=== PATIENT | male | born 1950 | race Caucasian/White ===

== ENCOUNTER 2018-09-10 09:45 | Day surgery (SDC) | payer MEDICARE, OTHER ==
[~2018-09-10] VITALS: Ht 185.4 cm; Wt 111.2 kg
[~2018-09-10 09:45] MED LIST: ANDROGEL; ASPI81EC PO; CHONDROITIN; CODACE30; CODACE30 PO; CYCL10 PO; DIAZ5 PO; DOCU100; DOCU100 PO; DOXA2; DOXA4 PO; Depo-Testos200 MG/ML IM; ENOX100I SC; ERGO400 PO; FISH1000 PO; FLAX PO; FLUT.05NI; GLUC500 PO; GLUCHON PO; HYDMOR4 PO; KETOPROFEN; LANS30EC PO; LEVA.63IS INH; LORA.5 PO; LOVA40; LOVA40 PO; MOMENI; MORP15ER PO; MSM PO; MULVITA; MULVITA PO; MULVITB&C PO; MULVITMIND PO; Morphine Sulfat15 MG PO; OXAP600; OXYACE5T PO; PYRI100 PO; Percocet 5-3251 EACH PO; Prednisone20 MG PO; TADA10TA PO; TRIA80TC; TRIA80TC TOP; VITB100 PO; Valium5 MG PO; WARF2 PO; WARF5; WARF5 PO; WARF6
[2018-09-10] MEDS ORDERED: WARF1 PO (10:22)
[2018-09-10] MEDS ORDERED: WARF4 PO (10:22)
== END 2018-09-10 11:42 | disposition home or self-care (01) ==
LOC: ORSCSDS 09:45
PROVIDERS: Internal Medicine Gastroenterology
PROC: 0DB68ZX Excision of Stomach, Via Natural or Artificial Opening Endoscopic, Diagnostic (ICD-10-PCS; principal; 2018-09-10 11:00)
PROC: 0DB58ZX Excision of Esophagus, Via Natural or Artificial Opening Endoscopic, Diagnostic (ICD-10-PCS; principal; 2018-09-10 11:00)
DX: K22.70 Barrett's esophagus without dysplasia (principal); K31.7 Polyp of stomach and duodenum; K21.9 Gastro-esophageal reflux disease without esophagitis; I10 Essential (primary) hypertension; E78.5 Hyperlipidemia, unspecified; Z87.891 Personal history of nicotine dependence; Z86.718 Personal history of other venous thrombosis and embolism; Z86.711 Personal history of pulmonary embolism; Z79.01 Long term (current) use of anticoagulants; J45.909 Unspecified asthma, uncomplicated; Z86.73 Personal history of transient ischemic attack (TIA), and cerebral infarction without residual deficits; Z79.899 Other long term (current) drug therapy
CPT/HCPCS: 88305; J2704; J7120

== ENCOUNTER → 2018-11-23 | Outpatient (CLI) | payer MEDICARE, OTHER ==
[~2018-11-23] MED LIST changes: +ACET325 PO; +FINA5 PO; +FISH OIL 1,2001 EACH PO; +LOSARTAN POTAS100 MG PO; +TAMS.4ER PO; +WARF1 PO; +WARF4 PO
[2018-11-23 16:30] LABS: Source, Urine Clean Catch
[2018-11-23 17:58] LABS: Bilirubin, Urine Neg (Neg); Blood, Urine Neg (Neg); Glucose Qualitative, Urine Neg (Neg); Ketones, Urine 1+ (Neg); Leukocyte Esterase, Urine 1+ (Neg); Nitrite, Urine Neg (Neg); Protein, Urine Neg (Neg); Urobilinogen, Urine NORM (Normal)
[2018-11-23 18:07] LABS: Appearance, Urine Clear (Clear); Color, Urine Yellow (P-Yellow)
[2018-11-23 18:09] LABS: Bacteria Few /hpf; Red Blood Cells, Urine Not Seen /hpf (0-2); Squamous Epithelial Cells Rare /hpf (Few); White Blood Cells, Urine 0-2 /hpf (0-5)
== END | disposition home or self-care (01) ==
LOC: LAB 16:28 → LAB SHORT 16:28
PROVIDERS: Physician Assistant
DX: R10.2 Pelvic and perineal pain (principal)
CPT/HCPCS: 81001; 87086

== ENCOUNTER 2018-12-17 10:05 | Emergency (ER) | payer MEDICARE, OTHER ==
[~2018-12-17] VITALS: Ht 185.4 cm; Wt 112.4 kg
[~2018-12-17 10:05] MED LIST changes: -ACET325 PO; -FINA5 PO; -LOSARTAN POTAS100 MG PO; -TAMS.4ER PO
[2018-12-17] MEDS ORDERED: FINA5 PO (11:20)
[2018-12-17] MEDS ORDERED: LANS30EC PO (11:21)
[2018-12-17] MEDS ORDERED: LOSARTAN POTAS100 MG PO (11:27)
[2018-12-17] MEDS ORDERED: TAMS.4ER PO (11:56)
[2018-12-17] MEDS ORDERED: Depo-Testos200 MG/ML IM (11:59)
[2018-12-17] MEDS ORDERED: ACET325 PO (12:00)
== END 2018-12-17 15:46 | disposition home or self-care (01) ==
LOC: ER 10:05
DX: S40.022A Contusion of left upper arm, initial encounter (principal); S80.02XA Contusion of left knee, initial encounter; R51 Headache; I10 Essential (primary) hypertension; Z88.0 Allergy status to penicillin; Z88.2 Allergy status to sulfonamides; Z87.891 Personal history of nicotine dependence; Z79.899 Other long term (current) drug therapy; W18.30XA Fall on same level, unspecified, initial encounter
CPT/HCPCS: 70450; 72040; 73030; 73070; 73564; 99284-25

== ENCOUNTER → 2020-05-17 | Outpatient (CLI) | payer MEDICARE, OTHER ==
[~2020-05-17] MED LIST changes: +ACET325 PO; +FINA5 PO; +LOSARTAN POTAS100 MG PO; +TAMS.4ER PO
== END | disposition home or self-care (01) ==
LOC: LAB 11:06 → LAB SHORT 11:06
DX: D04.61 Carcinoma in situ of skin of right upper limb, including shoulder (principal)
CPT/HCPCS: 88305

== ENCOUNTER → 2020-11-07 | Outpatient (CLI) | payer MEDICARE, OTHER | END | disposition home or self-care (01) | LOC: LAB SHORT 08:02 | DX: L90.5 Scar conditions and fibrosis of skin (principal) | CPT/HCPCS: 88305 ==

== ENCOUNTER → 2021-05-31 | Outpatient (CLI) | payer MEDICARE, OTHER ==
[2021-06-10 06:11] LABS: 6-ACETYLMORPHINE Not Detected (.)
== END | disposition home or self-care (01) ==
LOC: LAB SHORT 16:57
PROVIDERS: Family Medicine
DX: Z51.81 Encounter for therapeutic drug level monitoring (principal); Z79.899 Other long term (current) drug therapy
CPT/HCPCS: G0480

== ENCOUNTER → 2021-09-02 | Outpatient (CLI) | payer MEDICARE, OTHER ==
[2021-09-11 08:17] LABS: 6-ACETYLMORPHINE Not Detected (.)
== END | disposition home or self-care (01) ==
LOC: LAB SHORT 10:50 → LAB 10:50
PROVIDERS: Family Medicine
DX: Z51.81 Encounter for therapeutic drug level monitoring (principal); Z79.899 Other long term (current) drug therapy
CPT/HCPCS: G0480

== ENCOUNTER 2021-11-13 08:53 | Day surgery (SDC) | payer MEDICARE, OTHER ==
[~2021-11-13] VITALS: Ht 185.4 cm; Wt 109.0 kg
[2021-11-13] MEDS ORDERED: ENOX30I (09:20)
== END 2021-11-13 10:44 | disposition home or self-care (01) ==
LOC: ORSCSDS 08:53
PROVIDERS: Internal Medicine Gastroenterology
PROC: 0DB58ZX Excision of Esophagus, Via Natural or Artificial Opening Endoscopic, Diagnostic (ICD-10-PCS; principal; 2021-11-13 10:00)
DX: K22.70 Barrett's esophagus without dysplasia (principal); J45.909 Unspecified asthma, uncomplicated; I63.9 Cerebral infarction, unspecified; K21.9 Gastro-esophageal reflux disease without esophagitis; Z86.73 Personal history of transient ischemic attack (TIA), and cerebral infarction without residual deficits; Z79.01 Long term (current) use of anticoagulants; Z79.899 Other long term (current) drug therapy
CPT/HCPCS: 88305; J2704; J7120

== ENCOUNTER → 2022-08-26 | Outpatient (CLI) | payer MEDICARE, OTHER ==
[~2022-08-26] MED LIST changes: +ENOX30I
== END | disposition home or self-care (01) ==
LOC: LAB SHORT 14:01 → PLD 14:01
DX: D69.2 Other nonthrombocytopenic purpura (principal)
CPT/HCPCS: 88305; 88313

== ENCOUNTER 2022-12-02 16:33 | Inpatient (IN) | payer MEDICARE, OTHER ==
[~2022-12-02] VITALS: Ht 185.4 cm; Wt 110.9 kg
[~2022-12-02 16:33] MED LIST changes: +DEPO-TESTO200 MG/1 M IM; -WARF1 PO
[2022-12-02 17:06] LABS: BASOPHILS ABSOLUTE AUTO 0.04 K/mm3 (0.00-0.23); BASOPHILS PERCENT AUTO 1 % (0-2); EOSINOPHILS ABSOLUTE AUTO 0.15 K/mm3 (0.00-0.68); EOSINOPHILS PERCENT AUTO 2 % (0-6); Hematocrit 38.8 % (37.0-53.0); Hemoglobin 13.1 g/dL (13.5-17.5); IMMATURE GRAN ABSOLUTE AUTO 0.01 K/mm3 (0.00-0.10); IMMATURE GRAN PERCENT AUTO 0 % (0-1); LYMPHOCYTES ABSOLUTE AUTO 1.42 K/mm3 (0.84-5.20); LYMPHOCYTES PERCENT AUTO 23 % (21-46); MONOCYTES ABSOLUTE AUTO 0.48 K/mm3 (0.16-1.47); MONOCYTES PERCENT AUTO 8 % (4-13); Mean Corpuscular HGB 32.3 pg (26.0-34.0); Mean Corpuscular HGB Conc 33.8 g/dL (31.5-36.5); Mean Corpuscular Volume 96 fL (80-100); Mean Platelet Volume 9.8 fL (9.1-12.4); NEUTROPHILS ABSOLUTE AUTO 4.11 K/mm3 (1.96-9.15); NEUTROPHILS PERCENT AUTO 66 % (41-73); Platelet Count 199 K/mm3 (150-400); RDW Coefficient Variation 12.8 % (11.7-14.2); RDW Standard Deviation 44.8 fL (35.1-46.3); Red Blood Cell Count 4.06 M/mm3 (4.30-5.90); White Blood Cell Count 6.21 K/mm3 (4.00-11.30)
[2022-12-02 17:14] LABS: Albumin, Blood 3.4 g/dL (3.4-5.0); Bilirubin, Total 0.4 mg/dL (0.1-1.0); Bun/Creatinine Ratio 24.9 (12.0-20.0); Calcium, Blood 8.4 mg/dL (8.5-10.1); Creatinine, Blood 0.72 mg/dL (0.60-1.20); Globulin, Blood 3.3 g/dL (2.2-4.0); Potassium, Blood 4.1 mmol/L (3.5-5.5); Total Protein, Blood 6.7 g/dL (6.4-8.2)
--- NOTE | 2022-12-02 20:05 | NUR ---
PT CHART REVIEWED FOR ADMISSION
[2022-12-02 20:54] VITALS: BP 136/76
--- NOTE | 2022-12-02 22:18 | NUR ---
ADMIT NOTE 72 YR OLD MALE ADMITTED TO FLOOR FROM THE ED WITH DX OF CHEST PAIN. ALERT AND ORIENTED X 4. DENIES CHEST PAIN AT THIS TIME. VOICED HX OF "SMALL" CVA A FEW YEARS AGO. NOTE SLIGHT RIGHT FACIAL DROOP, AND PT VOICED SOME NEUROPATHY OF BLE. OTHERWISE, NO NOTED S/S. PT UP AD RAEANN. ORIENTED TO USE OF CALL LIGHT. VSS. WILL CONTINUJE TO MONITOR
--- NOTE | 2022-12-02 23:53 | NUR ---
CALL PLACED TO PHARMACY RE WARFARIN DOSAGE. PHARMACY RESPONDED THAT INR WAS OK, AND THAT THEY WOULD START THE MED T[place]. PT NOTIFIED. AFFECT CHEERFUL. VOICED SLIGHT CHEST TIGHTNESS, BUT THAT IT WAS VERY MINIMAL AND DENIED ANY PAIN. WILL CONTINUE TO MONITOR. CALL LIGHTIN REACH
--- NOTE | 2022-12-03 00:13 | NUR ---
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 HAS DENIED HAVING CHEST PAIN SINCE ADMITTED TO FLOOR. ON O2 AT 2L/NC PT REPORTED HX OF SOB AT NIGHT IF NOT WEARING O2. ONE EPISODE OF VOICED SLIGHT CHEST PRESSURE, OTHERWISE NO C/O VOICED. NO NOTED S/S ACUTE DISTRESS. UP AD RAEANN. RESTING QUIETLY. CALL LIGHT IN REACH. MED TELE SINUS BENNY IN THE 50'S, WITH OCCASIONAL PAC. WILL CONTINUE TO MONITOR
[2022-12-03 03:15] VITALS: BP 141/75
[2022-12-03 05:35] LABS: International Normalized Ratio 2.43; Prothrombin Time Results 24.3 Sec (9.7-11.5)
[2022-12-03 05:52] VITALS: BP 122/68
[2022-12-03 07:36] VITALS: BP 124/69
[2022-12-03 12:38] VITALS: BP 124/72
[2022-12-03 16:13] VITALS: BP 123/71
[2022-12-03] MEDS ORDERED: LEVALBUTEROL TA15 G1 INH (17:04)
[2022-12-03] MEDS ORDERED: METO50ER PO (17:05)
[2022-12-03 19:19] VITALS: BP 142/83
--- NOTE | 2022-12-03 19:30 | NUR ---
SHIFT SUMMARY PT AXO, PLEASANT AND COOPERATIVE WITH CARE. PT COMPLAINED OF CHEST PAIN X2 THIS SHIFT RATING IT 3/10, SINUS BENNY IN 50'S WITH PAC'S AND CHEST PAIN RESOLVED. NITRO LOCKED IN PATIENT DRAWER, BUT NOT ADMINISTERED. PT COMPLETED 1 DAY PROTOCOL STRESS TEST. AWAITING RESULTS. EKG IN CHART. BED IN LOW POSITION, CALL LIGHT WITHIN REACH. PT DENIES IGNITION SOURCES.
--- NOTE | 2022-12-04 04:45 | NUR ---
PT AOX4 AND COOPERATIVE OF CARE. PT DENIES ANY CHEST PAIN AND INDEPENDENT IN ROOM. PT DID REQUEST PAIN MEDS FOR CHRONIC PROSTATE SPASMS AND WAS TREATED PER EMAR. NO DISTRESS NOTED AT THIS TIME WILL CONTINUE TO MONITOR. CALL LIGHT IS WITHIN REACH.
--- NOTE | 2022-12-04 04:47 | NUR ---
ADMINISTRATIVE JOB TITLES CALLED WITH A BENNY HR THAT DIPPED TO 39 THEN RETURNED TO 40-50. PT WAS NOT SYMTOMATIC. WILL CONTINUE TO MONITOR.
[2022-12-04 04:48] VITALS: BP 113/67
--- NOTE | 2022-12-04 04:48 | NUR ---
IGNITION RISK ASSESSMENT HAS BEEN DONE WITH HOURLY ROUNDING ANO HAZARDS FOUND.
[2022-12-04 05:14] LABS: International Normalized Ratio 1.86; Prothrombin Time Results 18.9 Sec (9.7-11.5)
[2022-12-04 07:48] VITALS: BP 121/75
[2022-12-04 09:39] VITALS: BP 130/73
[2022-12-04] MEDS ORDERED: METO25ER PO (12:20)
--- NOTE | 2022-12-04 14:17 | NUR ---
PATIENT DISCHARGED TO HOME ACCOMPANIED BY HIS . IV SALINE LOCK AND TELEMETRY REMOVED WITHOUT INCIDENT. PT AND VERBALIZED UNDERSTANDING OF D/C INSTRUCTIONS. OFF UNIT VIA W/C AT 1324. NO PERSONAL BELONGINGS LEFT BEHIND IN ROOM.
== END 2022-12-04 13:24 | disposition home or self-care (01) | DRG 313 ==
LOC: ER 16:33 → MEDS 16:34 → ENPENDDIS 12-04 11:25 → MEDS 12-04 13:24
PROVIDERS: Nurse Practitioner Acute Care; Student in an Organized Health Care Education/Training Program; ADMIT Hospitalist
DX: R07.89 Other chest pain (principal); I47.1 Supraventricular tachycardia; R94.31 Abnormal electrocardiogram [ECG] [EKG]; I10 Essential (primary) hypertension; E78.5 Hyperlipidemia, unspecified; N40.0 Benign prostatic hyperplasia without lower urinary tract symptoms; K21.9 Gastro-esophageal reflux disease without esophagitis; J45.20 Mild intermittent asthma, uncomplicated; K22.70 Barrett's esophagus without dysplasia; G89.29 Other chronic pain; Z96.611 Presence of right artificial shoulder joint; Z96.653 Presence of artificial knee joint, bilateral; Z88.0 Allergy status to penicillin; Z88.5 Allergy status to narcotic agent; Z88.1 Allergy status to other antibiotic agents; Z88.2 Allergy status to sulfonamides; Z88.8 Allergy status to other drugs, medicaments and biological substances; Z79.899 Other long term (current) drug therapy; Z79.01 Long term (current) use of anticoagulants; Z86.73 Personal history of transient ischemic attack (TIA), and cerebral infarction without residual deficits; Z86.711 Personal history of pulmonary embolism; Z86.718 Personal history of other venous thrombosis and embolism; Z90.89 Acquired absence of other organs; Z87.891 Personal history of nicotine dependence; Z87.39 Personal history of other diseases of the musculoskeletal system and connective tissue; Z90.49 Acquired absence of other specified parts of digestive tract; Z98.890 Other specified postprocedural states; Z99.81 Dependence on supplemental oxygen; Z98.1 Arthrodesis status; Z88.6 Allergy status to analgesic agent
CPT/HCPCS: 36415; 71045; 78452; 80053; 84484; 85025; 85610; 93005; 93010; 93017; 94760; 99285-25; A9270; A9500; G0378; J0706; J2785

== ENCOUNTER → 2023-04-23 | Outpatient (CLI) | payer MEDICARE, OTHER ==
[~2023-04-23] MED LIST changes: +LEVALBUTEROL TA15 G1 INH; +METO25ER PO; +METO50ER PO
[2023-04-27 09:59] LABS: 6-ACETYLMORPHINE, URN, QUANT <10 ng/mL; CODEINE, URN, QUANT 523 ng/mL; HYDROCODONE, URN, QUANT 33 ng/mL; HYDROMORPHONE, URN, QUANT <20 ng/mL; MORPHINE, URN, QUANT 30 ng/mL; NORHYDROCODONE, URN, QUANT 29 ng/mL; NOROXYCODONE, URN, QUANT <20 ng/mL; NOROXYMORPHONE, URN, QUANT <20 ng/mL; OXYCODONE, URN, QUANT <20 ng/mL; OXYMORPHONE, URN, QUANT <20 ng/mL
== END ==
LOC: LAB 18:08 → LAB SHORT 18:08
PROVIDERS: Family Medicine
DX: Z51.81 Encounter for therapeutic drug level monitoring (principal); Z79.899 Other long term (current) drug therapy
CPT/HCPCS: G0480

== ENCOUNTER → 2023-07-23 | Outpatient (CLI) | payer MEDICARE, OTHER ==
[2023-07-26 11:25] LABS: 6-ACETYLMORPHINE, URN, QUANT <10 ng/mL; CODEINE, URN, QUANT 1686 ng/mL; HYDROCODONE, URN, QUANT 26 ng/mL; HYDROMORPHONE, URN, QUANT <20 ng/mL; MORPHINE, URN, QUANT 30 ng/mL; NORHYDROCODONE, URN, QUANT 30 ng/mL; NOROXYCODONE, URN, QUANT <20 ng/mL; NOROXYMORPHONE, URN, QUANT <20 ng/mL; OXYCODONE, URN, QUANT <20 ng/mL; OXYMORPHONE, URN, QUANT <20 ng/mL
== END | disposition home or self-care (01) ==
LOC: LAB 14:55 → LAB SHORT 14:55
PROVIDERS: Family Medicine
DX: Z51.81 Encounter for therapeutic drug level monitoring (principal); Z79.899 Other long term (current) drug therapy
CPT/HCPCS: G0480

== ENCOUNTER 2023-11-04 20:18 | Emergency (ER) | payer MEDICARE, OTHER ==
[~2023-11-04] VITALS: Ht 185.4 cm; Wt 112.9 kg
[2023-11-04 20:20] VITALS: BP 148/62
== END 2023-11-04 22:05 | disposition home or self-care (01) ==
LOC: ER 20:18
DX: S93.601A Unspecified sprain of right foot, initial encounter (principal); N40.0 Benign prostatic hyperplasia without lower urinary tract symptoms; K21.9 Gastro-esophageal reflux disease without esophagitis; X50.0XXA Overexertion from strenuous movement or load, initial encounter; Z79.01 Long term (current) use of anticoagulants; Z79.899 Other long term (current) drug therapy; Z88.0 Allergy status to penicillin; Z88.5 Allergy status to narcotic agent; Z88.2 Allergy status to sulfonamides; Z88.8 Allergy status to other drugs, medicaments and biological substances; Z86.73 Personal history of transient ischemic attack (TIA), and cerebral infarction without residual deficits; Z87.891 Personal history of nicotine dependence
CPT/HCPCS: 73630; 99283-25

== ENCOUNTER → 2024-04-26 | Outpatient (CLI) | payer MEDICARE, OTHER ==
[2024-04-26 15:14] LABS: BASOPHILS ABSOLUTE AUTO 0.04 K/mm3 (0.00-0.23); BASOPHILS PERCENT AUTO 1 % (0-2); EOSINOPHILS ABSOLUTE AUTO 0.29 K/mm3 (0.00-0.68); EOSINOPHILS PERCENT AUTO 5 % (0-6); Hematocrit 44.8 % (37.0-53.0); Hemoglobin 15.2 g/dL (13.5-17.5); IMMATURE GRAN ABSOLUTE AUTO 0.03 K/mm3 (0.00-0.10); IMMATURE GRAN PERCENT AUTO 1 % (0-1); LYMPHOCYTES ABSOLUTE AUTO 1.78 K/mm3 (0.84-5.20); LYMPHOCYTES PERCENT AUTO 30 % (21-46); MONOCYTES ABSOLUTE AUTO 0.75 K/mm3 (0.16-1.47); MONOCYTES PERCENT AUTO 13 % (4-13); Mean Corpuscular HGB 32.8 pg (26.0-34.0); Mean Corpuscular HGB Conc 33.9 g/dL (31.5-36.5); Mean Corpuscular Volume 97 fL (80-100); Mean Platelet Volume 9.8 fL (9.1-12.4); NEUTROPHILS ABSOLUTE AUTO 3.13 K/mm3 (1.96-9.15); NEUTROPHILS PERCENT AUTO 52 % (41-73); Platelet Count 204 K/mm3 (150-400); RDW Coefficient Variation 12.6 % (11.7-14.2); RDW Standard Deviation 45.1 fL (35.1-46.3); Red Blood Cell Count 4.63 M/mm3 (4.30-5.90); White Blood Cell Count 6.02 K/mm3 (4.00-11.30)
[2024-04-26 15:26] LABS: Albumin, Blood 3.8 g/dL (3.4-5.0); Bilirubin, Total 0.4 mg/dL (0.1-1.0); Bun/Creatinine Ratio 17.3 (12.0-20.0); Calcium, Blood 9.1 mg/dL (8.5-10.1); Creatinine, Blood 0.81 mg/dL (0.60-1.20); Potassium, Blood 4.7 mmol/L (3.5-5.5); Total Protein, Blood 7.8 g/dL (6.4-8.2)
== END ==
LOC: LAB SHORT 15:10 → LAB 15:10
PROVIDERS: Physician Assistant
DX: R42 Dizziness and giddiness (principal); R60.9 Edema, unspecified
CPT/HCPCS: 80053; 83880; 85025

== ENCOUNTER → 2024-10-22 | Outpatient (CLI) | payer MEDICARE, OTHER | LOC: LAB SHORT 12:57 → LAB 12:57 | DX: R30.0 Dysuria (principal) | CPT/HCPCS: 87086 ==

== ENCOUNTER → 2024-11-08 | Outpatient (CLI) | payer MEDICARE, OTHER | END | disposition home or self-care (01) | LOC: LAB SHORT 11:39 → LAB 11:39 | DX: N39.0 Urinary tract infection, site not specified (principal) | CPT/HCPCS: 87077; 87086; 87186 ==

== ENCOUNTER 2024-12-02 09:54 | Day surgery (SDC) | payer MEDICARE, OTHER ==
[~2024-12-02] VITALS: Ht 185.4 cm; Wt 117.5 kg
[2024-12-02] MEDS ORDERED: NITR.4SL (10:35)
[2024-12-02] MEDS ORDERED: ENOX40I (10:36)
[2024-12-02] MEDS ORDERED: Flomax0.4 MG (10:36)
[2024-12-02] MEDS ORDERED: Tetracycline H500 MG (10:37)
[2024-12-02] MEDS ORDERED: Benzocaine Oral Spray 0.5ML UD ONE ×2 (11:39→11:40)
--- NOTE | 2024-12-02 11:42 | NUR ---
12/02/24 1142 ZANE CISSE SPRAY X2 PULLED ANESTHESIA REQUEST, GIVEN PER ANESTHESIA, ADAN
[2024-12-02 13:46] VITALS: BP 117/66
== END 2024-12-02 12:54 | disposition home or self-care (01) ==
LOC: ORSCSDS 09:54
PROVIDERS: Internal Medicine Gastroenterology
PROC: 0DB68ZX Excision of Stomach, Via Natural or Artificial Opening Endoscopic, Diagnostic (ICD-10-PCS; principal; 2024-12-02 11:15)
PROC: 0DB58ZX Excision of Esophagus, Via Natural or Artificial Opening Endoscopic, Diagnostic (ICD-10-PCS; principal; 2024-12-02 11:15)
DX: K22.70 Barrett's esophagus without dysplasia (principal); K31.7 Polyp of stomach and duodenum; I10 Essential (primary) hypertension; N40.0 Benign prostatic hyperplasia without lower urinary tract symptoms; Z86.718 Personal history of other venous thrombosis and embolism; Z86.73 Personal history of transient ischemic attack (TIA), and cerebral infarction without residual deficits; Z86.711 Personal history of pulmonary embolism; Z79.01 Long term (current) use of anticoagulants; Z79.899 Other long term (current) drug therapy; Z87.891 Personal history of nicotine dependence
CPT/HCPCS: 88305; A9270; J2704; J7120

== ENCOUNTER → 2024-12-20 | Outpatient (CLI) | payer MEDICARE, OTHER ==
[~2024-12-20] MED LIST changes: +ENOX40I; +Flomax0.4 MG; +NITR.4SL; +Tetracycline H500 MG
== END ==
LOC: LAB SHORT 12:57 → LAB 12:57
DX: N39.0 Urinary tract infection, site not specified (principal)
CPT/HCPCS: 87077; 87086; 87186